=== PATIENT | female | born 2000 | race American Indian/Alaskan Native ===

== ENCOUNTER 2019-05-19 07:34 | Emergency (ER) | payer SELFPAY ==
[2019-05-19 07:43] VITALS: BP 118/73
[2019-05-19] MEDS ORDERED: TETRACAINE 0.5% OPHTH SOLN 4ML OU ONE (09:33)
[2019-05-19] MEDS ORDERED: ACETAMINOPHEN 325 MG TAB PO ONE (09:33)
[2019-05-19] MEDS ORDERED: FLUORESCEIN 1 MG STRIP OP ONE (09:33)
--- NOTE | 2019-05-19 09:36 | Emergency Department Report ---
ED Eye Problem HPI - General Chief complaint: Eye Problems Stated complaint: EYE INJURY Time Seen by Provider: 05/19/19 09:32 Source: patient Mode of arrival: Ambulatory Limitations: No Limitations - History of Present Illness Initial comments: 19-year-old -Malagasy female reports to the emergency room for right thigh pain and injury. Patient states that she had tripped and fallen 2 days ago and hit her right eye on the corner of furniture. Patient states that the pain is persistent she is now having sensitivity to light and a headache. Kristian sharma denies any nausea vomiting denies any past medical history takes no medications on a daily basis and and has no known drug allergies. Patient denies any loss of consciousness denies any bleeding at the injured site. Patient is taking no pain medication. MD chief complaint: eye pain, eye injury Onset/Timin -: days(s) Onset Description: gradual Location: right eye Place: home If Injury: direct trauma Eye Symptoms: redness, pain Severity: severe Severity scale (0 -10): 8 If Pain, Quality: sharp, aching Context: trauma Associated Symptoms: headache Treatments Prior to Arrival: none - Related Data Patient Tetanus UTD: Yes Previous Rx's Medication Instructions Recorded Last Taken Type Acetaminophen/Codeine [Tylenol 1 tab PO Q6H PRN #12 tab 05/19/19 Unknown Rx /Codeine # 3 tab] Erythromycin [Erythromycin Ophth 1 strip OD TID 10 Days #1 tube 05/19/19 Unknown Rx Oint] Ibuprofen [Motrin 600 MG tab] 600 mg PO Q8H PRN #15 tablet 05/19/19 Unknown Rx Allergies Allergy/AdvReac Type Severity Reaction Status Date / Time No Known Allergies Allergy Unverified 05/19/19 07:37 ED Review of Systems ROS: Stated complaint: EYE INJURY Other details as noted in HPI ED Past Medical Hx - Past Medical History Previous Medical History?: No - Surgical History Past Surgical History?: No - Social History Smoking Status: Never Smoker Substance Use Type: None - Medications Home Medications: Home Medications Medication Instructions Recorded Confirmed Last Taken Type Acetaminophen/Codeine [Tylenol 1 tab PO Q6H PRN #12 tab 05/19/19 Unknown Rx /Codeine # 3 tab] Erythromycin [Erythromycin Ophth 1 strip OD TID 10 Days #1 tube 05/19/19 Unknow n Rx Oint] Ibuprofen [Motrin 600 MG tab] 600 mg PO Q8H PRN #15 tablet 05/19/19 Unknown Rx ED Physical Exam - General Limitations: No Limitations General appearance: alert, in no apparent distress - Head Head exam: Present: atraumatic, normocephalic - Expanded Eye Exam Expanded Pupils: Regular, Round: Right, Reactive: Right, Mydriasis: Right, Miosissis: Right Sclera/Conjunctival: Hemorrhage: Right Anterior chamber: Normal Inspection: Left, Hyphema: Left, Cell/Flare: Left Posterior chamber: Deferred: Right - ENT ENT exam: Present: mucous membranes moist, other (Right cornea abrasion fluorescein exam shows uptake on the anterior portion of the cornea.) - Expanded Neurological Exam Expanded Cranial nerves: EOM's Intact: Normal, Gag Reflex: Normal, Tongue Deviation: Normal, Nystagmus: Normal, Facial Sensation: Normal, Facial Palsy with Forehead Movement: Normal, Facial Palsy without Forehead Movement: Normal Cerebellar function: Finger to Nose: Normal, Heel to [place]: Normal, Romberg: Normal Upper motor neuron: Mick Neglect: Normal, Pronator Drift: Normal, Sensory Extinction: Normal Sensory exam: Upper Extremity Light Touch: Normal, Upper Extremity Pin Prick: Normal, Upper Extremity Temperature: Normal, UE 2 Point Discrimination: Normal, Lower Extremity Light Touch: Normal, Lower Extremity Pin Prick: Normal, Lower Extremity Temperature: Normal, LE 2 Point Discrimination: Normal Motor strength exam: RUE: 4, LUE: 4, RLE: 4, LLE: 4 Best Eye Response (Brice): (4) open spontaneously Best Motor Response (Cunningham): (6) obeys commands Best Verbal Response (Brice): (5) oriented Brice Total: 15 - Psychiatric Psychiatric exam: Present: normal affect, normal mood - Skin Skin exam: Present: warm, dry, intact, normal color. Absent: rash ED Course Vital Signs 05/19/19 05/19/19 07:40 09:40 Temperature 97.9 F Pulse Rate 77 Respiratory 18 16 Rate Blood Pressure 118/73 O2 Sat by Pulse 99 Oximetry ED Medical Decision Making - Radiology Data Radiology results: report reviewed Print Report Referring Physician:ALEKS HERRMANNPatient Name:SUSANNA THRASHERPatient ID:[id number] of :[id number]:FemaleAccession:[id number] Date:[id number] Status:Finalized Findings [facility] [address] [place] [address] Cat Scan Report Signed Patient: SUSANNA THRASHER MR#: [id number] : 2000 Acct:[id number] Age/Sex: 19 / F ADM Date: 05/19/19 Loc: ED Attending Dr: Ordering Physician: KRISTIAN NICHOLS Date of Service: 05/19/19 Procedure(s): CT facial bones wo con Accession Number(s): [id number] cc: KRISTIAN NICHOLS CT facial bones wo con INDICATION / CLINICAL INFORMATION: MAIN: Trauma to the right eye orbital pain x2days. TECHNIQUE: All CT scans at this location are performed using CT dose reduction for ALARA by means of automated exposure control. COMPARISON: None available. FINDINGS: The paranasal sinuses are clear. The orbital rims appear to be intact. No definite fracture is seen particularly in the right orbit. The zygomatic arches are unremarkable in appearance. The nasal septum appears to be midline in position without a nasal fracture. The orbits and globes appear to be normal. IMPRESSION: Negative CT of the facial bones Signer Name: Daniel Hernandez MD FACR Signed: 05/19/2019 10:32 AM Workstation Name: [id number] Transcribed By: AR Dictated By: Daniel Hernandez MD Electronically Authenticated By: Daniel Hernandez MD Signed Date/Time: 05/19/19 1032 DD/ 1030 TD/TT: - Medical Decision Making 19-year-old -Malagasy female reports to the emergency room for right thigh pain and injury. Patient states that she had tripped and fallen 2 days ago and hit her right eye on the corner of furniture. Patient states that the pain is persistent she is now having sensitivity to light and a headache. Patient denies any nausea vomiting denies any past medical history takes no m edications on a daily basis and and has no known drug allergies. Patient denies any loss of consciousness denies any bleeding at the injured site. Patient is taking no pain medication. Acetaminophen 650 mg for pain management facial CT rule out any fractures, eye exam to rule out any abrasion. Critical care attestation.: If time is entered above; I have spent that time in minutes in the direct care of this critically ill patient, excluding procedure time. ED Disposition Clinical Impression: Corneal abrasion, right Disposition: DC-01 TO HOME OR SELFCARE Is pt being admited?: No Does the pt Need Aspirin: No Condition: Stable Instructions: Corneal Abrasion (ED) Additional Instructions: Please take medications as prescribed. Do not operate heavy machinery while taking Tylenol 3. It is very important for you to follow-up with an surety bond agent I have listed several below for your convenience. Prescriptions: Erythromycin [Erythromycin Ophth Oint] 1 strip OD TID 10 Days #1 tube Ibuprofen [Motrin 600 MG tab] 600 mg PO Q8H PRN #15 tablet PRN Reason: Pain Acetaminophen/Codeine [Tylenol /Codeine # 3 tab] 1 tab PO Q6H PRN #12 tab PRN Reason: Pain , Severe (7-10) Referrals: PRIMARY CAREMD [Primary Care Provider] - 3-5 Days WING CAMPOS MD [Staff Physician] - 3-5 Days [facility] [Provider Group] - 3-5 Days [facility] [Provider Group] - 3-5 Days
--- NOTE | 2019-05-19 10:36 | Cat Scan Report ---
CT facial bones wo con INDICATION / CLINICAL INFORMATION: MAIN: Trauma to the right eye orbital pain x2days. TECHNIQUE: All CT scans at this location are performed using CT dose reduction for ALARA by means of automated e xposure control. COMPARISON: None available. FINDINGS: The paranasal sinuses are clear. The orbital rims appear to be intact. No definite fracture is seen p articularly in the right orbit. The zygomatic arches are unremarkable in appearance. The nasal septum appears to be midline in position without a nasal fracture. The orbits and globes appear to be michael l. IMPRESSION: Negative CT of the facial bones Signer Name: Daniel Hernandez MD FACR Signed: 05/19/2019 10:32 AM Workstation Name: [id number]
[2019-05-19] MEDS ORDERED: HYDROcodone/ACETAMINOPHEN 5-325 MG TAB PO ONE (11:08)
== END 2019-05-19 11:30 | disposition home or self-care (01) ==
LOC: ED 07:34
DX: S05.01XA Injury of conjunctiva and corneal abrasion without foreign body, right eye, initial encounter (principal); W22.03XA Walked into furniture, initial encounter; Y93.89 Activity, other specified; Y92.009 Unspecified place in unspecified non-institutional (private) residence as the place of occurrence of the external cause; Y99.8 Other external cause status
CPT/HCPCS: 70486; 99284